=== PATIENT | male | born 1970 | race Caucasian/White ===

== ENCOUNTER 2022-11-04 14:21 | Outpatient (CLI) | payer BC | END 2022-11-04 14:22 | disposition home or self-care (01) | LOC: TBSIIMAG 14:21 | PROVIDERS: ATTEND Family Medicine | DX: M47.26 Other spondylosis with radiculopathy, lumbar region (principal); M51.9 Unspecified thoracic, thoracolumbar and lumbosacral intervertebral disc disorder; R29.890 Loss of height; M46.06 Spinal enthesopathy, lumbar region; M51.16 Intervertebral disc disorders with radiculopathy, lumbar region; M48.061 Spinal stenosis, lumbar region without neurogenic claudication; M51.17 Intervertebral disc disorders with radiculopathy, lumbosacral region; M48.07 Spinal stenosis, lumbosacral region | CPT/HCPCS: 72100; 72148 ==